=== PATIENT | male | born 1950 | race Caucasian/White ===

== ENCOUNTER 2022-04-12 10:18 | Outpatient (CLI) | payer MEDICARE ==
[2022-04-12 11:41] LABS: Anion Gap 16 mmol/L (10-20); BUN (Urea Nitrogen) 22 mg/dL (8.4-25.7); Calc. Creatinine Clearance 0 mL/min (70-130); Calcium 9.9 mg/dL (7.8-10.44); Carbon Dioxide 25 mmol/L (23-31); Chloride 105 mmol/L (98-107); Glucose 95 mg/dL (83-110); Potassium 4.8 mmol/L (3.5-5.1); Sodium 141 mmol/L (136-145)
[2022-04-12 18:41] LABS: SARS-CoV-2 PCR by NAA Not Detected (NotDetected)
== END 2022-04-12 10:19 | disposition home or self-care (01) ==
LOC: LABBT 10:18
PROVIDERS: ATTEND Neurological Surgery
DX: Z01.818 Encounter for other preprocedural examination (principal); M54.16 Radiculopathy, lumbar region; Z20.822 Contact with and (suspected) exposure to COVID-19
CPT/HCPCS: 80048; 93005; U0003; U0005; 93010

== ENCOUNTER 2022-04-17 05:29 | Day surgery (SDC) | payer MEDICARE, OTHER ==
[2022-04-16 09:18] VITALS: BMI 36.0
[2022-04-17] MEDS ORDERED: fentaNYL Citrate/PF 100 MCG/2 ML SYRINGE ONE (06:08)
[2022-04-17] MEDS ORDERED: EPINEPHrine 1 MG/ML AMP ONE (06:10)
[2022-04-17] MEDS ORDERED: Bupivacaine PF 0.5% 30 ML VIAL ONE (06:10)
[2022-04-17] MEDS ORDERED: Thrombin 5000 UNITS/5 ML VIAL ONE (06:10)
[2022-04-17] MEDS ORDERED: Sodium Chloride 0.9% 100 ML ONE ×2 (06:48→11:36)
[2022-04-17] MEDS ORDERED: CEFAZOLIN 2 GM VIAL ONE ×2 (06:48→11:36)
[2022-04-17] MEDS ORDERED: Midazolam HCl 2 mg/2 ml Vial ONE (06:48)
[2022-04-17] MEDS ORDERED: Lidocaine 2% Jelly 5 ML TUBE ONE (06:48)
[2022-04-17] MEDS ORDERED: Fentanyl 100 MCG/2 ML VIAL ONE (08:08)
[2022-04-17] MEDS ORDERED: Tamsulosin HCl 0.4 MG CAP ONE (08:22)
[2022-04-17] MEDS ORDERED: HYDROcodone/Acetaminophen 5/325 mg Tablet ONE ×2 (09:46→11:49)
== END 2022-04-17 12:15 | disposition home or self-care (01) ==
LOC: SDC 05:29
PROVIDERS: ATTEND Neurological Surgery
PROC: 01NB0ZZ Release Lumbar Nerve, Open Approach (ICD-10-PCS; principal; 2022-04-17)
DX: M54.16 Radiculopathy, lumbar region (principal); E78.5 Hyperlipidemia, unspecified; I10 Essential (primary) hypertension; Z79.84 Long term (current) use of oral hypoglycemic drugs; Z79.899 Other long term (current) drug therapy
CPT/HCPCS: 76000; J0171; J2250; J3010; J3490; S0020